=== PATIENT | male | born 1965 | race Two or more races ===

== ENCOUNTER 2022-09-20 01:55 | Emergency (ER) | payer MEDICARE, OTHER ==
[~2022-09-20] VITALS: Ht 170.2 cm; Wt 80.0 kg
[2022-09-20] MEDS ORDERED: IOHEXOL 300 MG/ML 100ML BOTTLE IJ ONE (02:29)
[2022-09-20 02:59] LABS: Basophils # (auto) 0 10 ^3/uL (0-0.2); Basophils % (auto) 0.5 % (0.0-2.0); Eosinophils # (auto) 0.1 10 ^3/uL (0-0.8); Eosinophils % (auto) 1.6 % (0.0-7.0); Hematocrit 41.4 % (41.0-53.0); Hemoglobin 13.9 g/dL (13.5-17.5); INR 1.05 (0.9-1.15); Lymphocytes # (auto) 0.7 10 ^3/uL (0.4-5.4); Lymphocytes % (auto) 10.9 % (10.0-50.0); Mean Corpuscular Hemoglobin 30.7 pg (28.0-32.0); Mean Corpuscular Hgb Conc. 33.6 g/dL (32.0-36.0); Mean Corpuscular Volume 91.2 fL (80.0-100.0); Monocytes # (auto) 0.6 10 ^3/uL (0-1.3); Monocytes % (auto) 8.9 % (0.0-12.0); Neutrophils # (auto) 5.2 10 ^3/uL (1.6-8.6); Neutrophils % (auto) 78.1 % (37.0-80.0); Nucleated Red Blood Cells % 0.1 %; Partial Thromboplastin Time 26.6 SEC (24.5-34.5); Red Blood Cells 4.54 10^6/uL (4.5-5.90); Red Cell Distribution Width 14.6 % (11.8-14.3); White Blood Cell 6.6 10^3/uL (4.4-10.8)
[2022-09-20 03:02] LABS: Albumin 3.7 g/dL (3.4-5.0); Calcium 8.3 mg/dL (8.5-10.1); Potassium 3.7 mmol/L (3.5-5.1)
[2022-09-20 03:05] LABS: Bilirubin, Total 0.3 mg/dL (0.2-1.0); Total Protein 7.1 g/dL (6.4-8.2)
[2022-09-20 05:30] VITALS: PULSE 96; RESP 17; O2SAT 98
[2022-09-20] MEDS ORDERED: TETANUS-DIPTH-ACEL PERTUSSIS 0.5ML SYR Tdap IM ONE (08:45)
[2022-09-20] MEDS: IBUPROFEN 600 MG TAB PO ONE ×2 (08:45→10:53)
[2022-09-20] MEDS: ACETAMINOPHEN 325 MG TAB PO ONE ×2 (08:45→10:53)
[2022-09-20 09:20] VITALS: PULSE 78; RESP 20; O2SAT 96
[2022-09-20 09:30] VITALS: TEMP 98.2
[2022-09-20 11:30] VITALS: BP 110/60; PULSE 86; RESP 18; O2SAT 98
[2022-09-20] MEDS ORDERED: METO-281 PO (12:53)
[2022-09-20] MEDS ORDERED: CYCL-611 PO (12:53)
[2022-09-20] MEDS ORDERED: MELO10CA2 PO (12:53)
== END 2022-09-20 11:44 | disposition home or self-care (01) ==
LOC: EDBD 01:55 → ER 01:55
DX: S01.81XA Laceration without foreign body of other part of head, initial encounter (principal); S80.812A Abrasion, left lower leg, initial encounter; V89.2XXA Person injured in unspecified motor-vehicle accident, traffic, initial encounter; Y93.89 Activity, other specified; Y92.89 Other specified places as the place of occurrence of the external cause; Y99.8 Other external cause status
CPT/HCPCS: 12011; 36415; 70450; 71260; 72125; 73590; 74177; 80053; 85025; 85610; 85730; 90471; 90715; 99285; Q9967

== ENCOUNTER 2022-09-21 12:45 | Emergency (ER) | payer MEDICARE, OTHER ==
[~2022-09-21] VITALS: Ht 177.8 cm; Wt 75.0 kg
[~2022-09-21 12:45] MED LIST: CYCL-611 PO; MELO10CA2 PO; METO-281 PO
[2022-09-21 13:03] VITALS: BP 112/70; PULSE 110; RESP 20; O2SAT 96
[2022-09-21 13:41] LABS: Basophils # (auto) 0 10 ^3/uL (0-0.2); Basophils % (auto) 0.5 % (0.0-2.0); Eosinophils # (auto) 0.1 10 ^3/uL (0-0.8); Eosinophils % (auto) 1.6 % (0.0-7.0); Hematocrit 37.9 % (41.0-53.0); Hemoglobin 12.6 g/dL (13.5-17.5); Lymphocytes # (auto) 0.5 10 ^3/uL (0.4-5.4); Lymphocytes % (auto) 6.9 % (10.0-50.0); Mean Corpuscular Hemoglobin 29.9 pg (28.0-32.0); Mean Corpuscular Hgb Conc. 33.4 g/dL (32.0-36.0); Mean Corpuscular Volume 89.7 fL (80.0-100.0); Monocytes # (auto) 0.6 10 ^3/uL (0-1.3); Monocytes % (auto) 8.3 % (0.0-12.0); Neutrophils # (auto) 5.8 10 ^3/uL (1.6-8.6); Neutrophils % (auto) 82.7 % (37.0-80.0); Red Blood Cells 4.23 10^6/uL (4.5-5.90); Red Cell Distribution Width 14.6 % (11.8-14.3); White Blood Cell 7.1 10^3/uL (4.4-10.8)
[2022-09-21 14:15] LABS: Albumin 3.7 g/dL (3.4-5.0); Calcium 8.5 mg/dL (8.5-10.1); Potassium 3.6 mmol/L (3.5-5.1)
[2022-09-21 14:20] LABS: BUN/Creatinine Ratio 21.3 (10.0-20.0); Total Protein 6.8 g/dL (6.4-8.2)
== END 2022-09-21 18:49 | disposition left against medical advice (07) ==
LOC: ER 12:45
DX: S82.401D Unspecified fracture of shaft of right fibula, subsequent encounter for closed fracture with routine healing (principal); S82.201D Unspecified fracture of shaft of right tibia, subsequent encounter for closed fracture with routine healing; R06.02 Shortness of breath; V43.52XD Car driver injured in collision with other type car in traffic accident, subsequent encounter
CPT/HCPCS: 36415; 73700; 80053; 83880; 84484; 85025